=== PATIENT | male | born 1995 | race African-American/Black ===

== ENCOUNTER 2018-08-15 05:38 | Emergency (ER) | payer MEDICAID, OTHER ==
[~2018-08-15] VITALS: Ht 177.8 cm; Wt 73.0 kg
[2018-08-15] MEDS ORDERED: LIDOCAINE HCL/PF 1% 10 MG/ML 5ML VIAL IJ ONE (07:00)
[2018-08-15] MEDS ORDERED: IBUPROFEN 600MG TABLET PO ONE (07:00)
[2018-08-15 08:01] VITALS: BP 124/80
== END 2018-08-15 08:02 | disposition home or self-care (01) ==
LOC: ER 05:38
DX: S01.521A Laceration with foreign body of lip, initial encounter (principal); W22.8XXA Striking against or struck by other objects, initial encounter; Y93.89 Activity, other specified; Y92.89 Other specified places as the place of occurrence of the external cause; Y99.8 Other external cause status
CPT/HCPCS: 99282; J3490; Z7610

== ENCOUNTER 2020-11-26 09:45 | Emergency (ER) | payer MEDICAID ==
[~2020-11-26] VITALS: Ht 177.8 cm; Wt 77.0 kg
[2020-11-26] MEDS ORDERED: DOXYCYCLINE HYCLATE 100MG CAPSULE PO ONE (10:30)
[2020-11-26] MEDS ORDERED: CEFTRIAXONE SODIUM 500 MG/VIAL IM ONE (10:30)
[2020-11-26] MEDS ORDERED: LIDOCAINE HCL/PF 1% 10 MG/ML 5ML VIAL INFIL ONE (10:30)
[2020-11-26] MEDS ORDERED: HYDROCODONE/ACETAMINOPHEN 5/325MG TABLET PO ONE (10:45)
[2020-11-26] MEDS ORDERED: IBUP-2029 MT (10:49)
[2020-11-26] MEDS ORDERED: HYDR-4001 MT (10:49)
[2020-11-26 12:35] VITALS: BP 122/75
[2020-11-26 13:23] LABS: CLARITY URINE CLEAR (CLEAR); COLOR URINE YELLOW (YELLOW); KETONES URINE NEGATIVE (NEGATIVE); LEUKOCYTE ESTERASE URINE 2+ (NEGATIVE); NITRITE URINE NEGATIVE (NEGATIVE); OCCULT BLOOD URINE NEGATIVE (NEGATIVE); PH URINE 6.5 (4.5-8.0); PROTEIN URINE NEGATIVE (NEGATIVE); SPECIFIC GRAVITY URINE 1.022 (1.005-1.030)
[2020-11-28 10:07] LABS: NEISSERIA GONORRHOEAE NAA Positive (Negative)
== END 2020-11-26 13:52 | disposition home or self-care (01) ==
LOC: ER 09:52
DX: S20.212A Contusion of left front wall of thorax, initial encounter (principal); F12.10 Cannabis abuse, uncomplicated; Z11.3 Encounter for screening for infections with a predominantly sexual mode of transmission; Z79.899 Other long term (current) drug therapy; Y04.0XXA Assault by unarmed brawl or fight, initial encounter; Y93.89 Activity, other specified; Y92.89 Other specified places as the place of occurrence of the external cause; Y99.8 Other external cause status
CPT/HCPCS: 71045; 71100; 81003; 87077; 87086; 87491; 87591; 96372; 99284; J0696; J3490